=== PATIENT | male | born 1980 | race Caucasian/White ===

== ENCOUNTER 2016-11-07 13:59 | Emergency (ER) | payer BC, OTHER ==
[2016-11-07 14:28] VITALS: BP 146/81
--- NOTE | 2016-11-07 14:51 | UC ---
Respiratory Complaint HPI - HPI Summary HPI Summary: Started a week ago with a headache and sore throat. Denies any fevers. Now has a persistent cough. Productive at times. Concerned that this could be pneumonia and is traveling to [place] on . - History of Current Complaint Chief Complaint: UCRespiratory Stated Complaint: COUGH Time Seen by Provider: 11/07/16 14:32 Hx Obtained From: Patient Onset/Duration: Gradual Onset, Lasting Weeks Timing: Intermittent Episodes Severity Initially: Mild Severity Currently: Mild Character: Cough: Productive Aggravating Factors: Nothing Alleviating Factors: Nothing Associated Signs And Symptoms: Positive: Hoarseness. Negative: Dyspnea, Fever, Chills, Pleuritic Chest Pain, Wheezing, Nasal Congestion, Sinus Discomfort - Allergies/Home Medications Allergies/Adverse Reactions: Allergies Allergy/AdvReac Type Severity Reaction Status Date / Time No Known Allergies Allergy Verified 11/07/16 14:28 Home Medications: Home Medications Oralair 1 DAILY 11/07/16 [History] PMH/Surg Hx/FS Hx/Imm Hx Previously Healthy: Yes Endocrine History Of: Denies: Diabetes, Thyroid Disease Cardiovascular History Of: Denies: Cardiac Disorders, Hypertension Respiratory History Of: Denies: COPD, Asthma GI/ History Of: Denies: Ulcer - Surgical History Surgical History: Yes Surgery Procedure, Year, and Place: t&a - Social History Alcohol Use: Occasionally Substance Use Type: Marijuana Substance Use Comment - Amount & Last Used: every few months Smoking Status (MU): Never Smoked Tobacco Review of Systems Constitutional: Fatigue Skin: Negative Eyes: Negative ENT: Negative Respiratory: Cough Cardiovascular: Negative Gastrointestinal: Negative Genitourinary: Negative Motor: Negative Neurovascular: Negative Musculoskeletal: Negative Neurological: Negative Psychological: Negative All Other Systems Reviewed And Are Negative: Yes Physical Exam Triage Information Reviewed: Yes Appearance: Well-Appearing, No Pain Distress, Well-Nourished Vital Signs: Initial Vital Signs Temp 98.2 F 11/07/16 14:25 Pulse 51 11/07/16 14:25 Resp 18 11/07/16 14:25 BP 146/81 11/07/16 14:25 Pulse Ox 100 11/07/16 14:25 Vital Signs Reviewed: Yes Eye Exam: Normal Eyes: Positive: Conjunctiva Clear ENT Exam: Normal ENT: Positive: Normal ENT inspection, Hearing grossly normal, Pharynx normal, TMs normal. Negative: Nasal congestion, Nasal drainage, Tonsillar swelling, Tonsillar exudate Neck exam: Normal Neck: Positive: Supple, Nontender, No Lymphadenopathy Respiratory Exam: Normal, Other - no cough noted on exam Respiratory: Positive: Chest non-tender, Lungs clear, Normal breath sounds, No respiratory distress, No accessory muscle use. Negative: Wheezing Cardiovascular Exam: Normal Cardiovascular: Positive: RRR, No Murmur Musculoskeletal Exam: Normal Musculoskeletal: Positive: Strength Intact Neurological Exam: Normal Neurological: Positive: Alert Psychological Exam: Normal Skin Exam: Normal UC Diagnostic Evaluation - Laboratory O2 Sat by Pulse Oximetry: 100 Respiratory Course/Dx - Course Course Of Treatment: The cough may last 2-3 weeks. We will prescribe tessalon. Patient encouraged to drink plenty of fluids. Follow-up with primary care provider if worsening symptoms or fever. - Differential Dx/Diagnosis Differential Diagnosis/HQI/PQRI: Bronchitis, Sinusitis Provider Diagnoses: Upper Respiratory Infection Discharge - Discharge Plan Condition: Stable Disposition: HOME Prescriptions: Benzonatate CAP* [Tessalon CAP*] 100 mg PO TID PRN #30 cap PRN Reason: Cough Patient Education Materials: Upper Respiratory Infection (ED) Print Language: NIGERIAN Additional Instructions: This is most likely a viral upper respiratory infection. We will prescribe tessalon for the cough. Drink plenty of fluids. The cough can sometimes last 2- 3 weeks. Call your primary care doctor if having fevers or worsening symptoms.
== END 2016-11-07 15:16 | disposition home or self-care (01) ==
LOC: UCEAST 13:59
DX: J06.9 Acute upper respiratory infection, unspecified (principal); R03.0 Elevated blood-pressure reading, without diagnosis of hypertension
CPT/HCPCS: 99202; G0463